=== PATIENT | male | born 1975 | race Hispanic/Latino ===

== ENCOUNTER 2017-01-26 13:56 | Emergency (ER) | payer OTHER, BC ==
[2017-01-26 15:48] VITALS: BP 114/73
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
[2017-01-26] MEDS ORDERED: BOOSTRIX IM ONE (17:03)
[2017-01-26] MEDS ORDERED: TYLENOL PO ONE (17:03)
== END 2017-01-26 18:20 | disposition home or self-care (01) ==
LOC: ED 13:56
DX: S39.012A Strain of muscle, fascia and tendon of lower back, initial encounter (principal); E11.9 Type 2 diabetes mellitus without complications; F17.200 Nicotine dependence, unspecified, uncomplicated; Z88.6 Allergy status to analgesic agent; V89.2XXA Person injured in unspecified motor-vehicle accident, traffic, initial encounter; Y93.9 Activity, unspecified; Y99.9 Unspecified external cause status; Y92.410 Unspecified street and highway as the place of occurrence of the external cause
CPT/HCPCS: 90471; 90715